=== PATIENT | female | born 1965 | race Caucasian/White ===

== ENCOUNTER 2024-11-01 12:52 | Emergency (ER) | payer OTHER, SELFPAY ==
--- NOTE | ~2024-11-01 | XR_ITS ---
EXAMINATION: XR RIBS, RIGHT CLINICAL INFORMATION: fall, right posterior rib pain COMPARISON: None available. TECHNIQUE: 3 views of the right ribs were obtained. FINDINGS: No consolidation, pleural effusion or pneumothorax. Cardiomediastinal silhouette size is normal. Calcified plaque aortic arch. Multilevel thoracic spondylosis. No acute depressed cortical disruption in the ribs of the right hemithorax. Skin marker overlapping the posterior lateral 11th rib. XR/XR ribs RT min 3V w CXR1V IMPRESSION: No acute rib fracture, right hemithorax. No acute airspace disease. Electronically signed by: Lucio Waddell MD 11/01/2024 02:18 PM EST RP
--- NOTE | 2024-11-01 13:40 | ED.GENADULT ---
HPI - General Adult General Chief complaint: Fall Stated complaint: pain on r side back pain Time Seen by Provider: 11/01/24 14:26 Source: patient, family and old records reviewed Mode of arrival: ambulatory Limitations: no limitations History of Present Illness ED Provider: ALENA ESTES narrative: 59 yo female PMH of GERD, HTN, HLD not on blood thinners fell last Monday 10/23 landing on R ribs and low back - no headstrike or LOC. Since then she has isolated pain to R lateral ribs and lower back. No other injuries reported, hurts to move and breathe. She did not report loss of control of bowel or bladder. MD complaint: rib pain Onset (ago): day(s) (10) Location: chest Radiation: back Severity: moderate Quality: aching Pain Consistency: intermittent Relieving factors: rest Exacerbating factors: movement Associated symptoms: denies other symptoms Treatments prior to arrival: none Related Data Previous Rx's ?Medication ?Instructions ?Recorded cyclobenzaprine 10 mg tablet 10 mg PO TID PRN muscle spasm #20 11/01/24 tabs lidocaine 5 % topical patch 1 patch topical DAILY #30 ea 11/01/24 Allergies Allergy/AdvReac Type Severity Reaction Status Date / Time No Known Allergies Allergy Verified 11/01/24 13:43 Review of Systems Review of Systems: Constitutional : No Weight loss, No Fever, No Chills ENT/Mouth : No sore throat, No Rhinorrhea Eyes: No Eye Pain, No Swelling Cardiovascular : pos rib pain Pain, no SOB, no Dyspnea on Exertion, No Orthopnea, No Edema, No Palpitations Respiratory : No Cough, No Sputum Gastrointestinal : no Nausea, No Vomiting, No Diarrhea, No abdominal Pain, No Hematochezia, No Melena Genitourinary : No Dysuria, No Urinary Frequency Musculoskeletal : No joint pain, No Myalgias, No Joint Swelling, pos back pain Skin : No Skin Lesions, No rash Neuro : No Weakness, No Numbness, No Dizziness, No Headache All other systems reviewed and are negative [facility] Past Medical History Attestation statement: The following information was validated with the patient. Source: old records reviewed Medical History (Updated 11/01/24 @ 14:41 by Jeanette Merlos DO) Hyperlipidemia GERD (gastroesophageal reflux disease) HTN (hypertension) Social History Social History (Updated 11/01/24 @ 14:41 by Jeanette Merlos DO) Patient Tobacco Use Status: Never used Tobacco Physical Exam ED Vital Signs: Vital Signs - 24 hr 11/01/24 13:41 Temperature 98.5 F Pulse Rate 85 Respiratory Rate 18 Blood Pressure 159/87 H Pulse Oximetry 96 Oxygen Delivery Method Room Air BMI result Body Mass Index 36.0 Appearance: Alert. Oriented X3. No acute distress. Eyes: Pupils equal, round and reactive to light. ENT: Pharynx normal. Neck: Normal inspection. Neck supple. CVS: Normal heart rate and rhythm. Pulses normal. Ribs: R lateral and R paraspinal lumbar Respiratory: No respiratory distress. Breath sounds normal. Abdomen: Soft and nontender. Skin: Skin warm and dry. Normal skin color. Normal skin turgor. Extremities: No lower extremity edema. No calf ttp Neuro: Oriented X 3. No motor deficit. No sensory deficit. CN2-12 intact Course Course Course Narrative: This is a Rapid Medical Examination (RME) performed by Osmar Mcnulty PA-C in triage. Full HPI, ROS, assessment and treatment plan per primary provider in the Main ED. 59 yo female here for eval of right posterior rib pain s/p mechanical slip and fall 1 wk ago. using lido patch w/o relief. no head strke or loc. not on ac. +ttp over right lower posteriolateral ribs. no palpable deformity. lungs clear Plan: imaging Medical Decision Making Medical Decision Making [facility] Narrative: 59 yo female PMH of GERD, HTN, HLD not on blood thinners here s/p fall without headstrike or LOC 10 days ago still has R sided rib pain and lower lumbar muscle pain at this time will need xrays of Ribs, back pain is all soft tissue. She has no other injuries and no resp distress or hypoxia. It all originated with the fall doubt she has VTE/ACS. No cauda equina symptoms noted - will obtain xray and DC with supportive care pending finding. Differential Diagnosis Differential Diagnoses: The differential diagnosis associated with the presentation includes rib contusion, fracture, lumbar strain Independent Interpretation I performed an independent interpretation of an: Plain X-Ray (no fx) Radiology Impression Discussion of test interpretation with radiology: I have reviewed the radiologist's reading. Independent Historian Clinical information obtained from an independent historian. History obtained from or confirmed by: Friend External Record Review External record reviewed: Outpatient record Prescription Management I considered prescription management with: Pain Medication and Other Discharge Plan Discharge Clinical Impression: Contusion of rib on right side Qualifiers: Encounter type: initial encounter Qualified Code(s): S20.211A - Contusion of right front wall of thorax, initial encounter Patient Disposition: Home, Self-Care Instructions: Rib Contusion (ED) Additional Instructions: limit lifting 10lbs for 2 weeks return for worsening pain, fevers, unable to breathe, mucous production that is severe or any other concerns INDINGS: No consolidation, pleural effusion or pneumothorax. Cardiomediastinal silhouette size is normal. Calcified plaque aortic arch. Multilevel thoracic spondylosis. No acute depressed cortical disruption in the ribs of the right hemithorax. Skin marker overlapping the posterior lateral 11th rib. XR/XR ribs RT min 3V w CXR1V IMPRESSION: No acute rib fracture, right hemithorax. No acute airspace disease. Prescriptions: New cyclobenzaprine 10 mg tablet 10 mg PO TID PRN (Reason: muscle spasm) Qty: 20 0RF lidocaine 5 % adhesive patch,medicated 1 patch topical DAILY Qty: 30 0RF Rx Instructions: leave on most painful area for up to 12 hrs Stand Alone Forms: Work/School Release Print Language: Tongan
[2024-11-01 13:41] VITALS: BP 159/87; PULSE 85; RESP 18; TEMP 36.9; O2SAT 96; BMI 36.0
--- NOTE | 2024-11-01 14:49 | PC.NURSE ---
pt was seen and discharged by provider
[2024-11-01 15:15] VITALS: BP 159/87; PULSE 85; RESP 18; TEMP 36.9; O2SAT 96
--- OUTSIDE RECORDS SUMMARY | 2024-11-01 17:08 | XMS_ITS | Clinical Summary ---
Author Organization [facility] Address [address] [place] [address] Care Team Providers Care Derrick Helper Name Role Phone Luis Armando Bradley QUINTON Primary Care Provider [phone] Source Comments PLEASE NOTE, if this patient is a minor, it may be UNLAWFUL to discuss sensitive information that is contained in these records (such as FAMILY PLANNING, MENTAL HEALTH or SUBSTANCE ABUSE) with the minor patient's parent or other person without the patient's specific authorization.[facility] Allergies Active Allergy Reactions Criticality Noted Date Comments Aspirin Intolerance - Will N ot Trigger Allergy Alert 01/20/2019 Medications amLODIPine-valsa rtan-hcthiazid 5-160-25 mg tab Take 1 Tablet by mouth once daily 90 Tablet 2 4 Active atorvastatin (LIPITOR) 40 mg tablet Take 1 Tablet by mouth once daily 90 Tablet 2 4 Active omeprazole (PRILOSEC) [address] capsuleIndicatio ns:Gastroesophag eal reflux disease without esophagitis Take 1 Capsule by mouth every morning before breakfast 90 Capsule 2 4 Active traZODone (DESYREL) 50 mg tablet TAKE 1 TABLET BY MOUTH AT BEDTIME NEEDED FOR SLEEP 30 Tablet 1 4 Active cholecalciferol, vitamin D3, (VITAMIN D3) 25 mcg (1,000 unit) capsuleIndicatio ns:Vitamin D deficiency TAKE 1 CAPSULE BY MOUTH ONCE DAILY 90 Capsule 4 Active Active Problems Problem Noted Date Diagnosed Date 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 pylori) infection 02/11/2019 01/27/2024 Overview (02/11/2019): Tested positive 02/10/2019 Chronic midline low back jose n without sciatica 01/21/2019 01/27/2024 Gastritis without bleeding 01/21/2019 0 01/27/2024 Immunizations Name Administration Dates Next Due Flu, Preservative Free 06/19/2023 TDAP 06/19/2023 ZOSTER VACCINE, RECOMBINANT (SHINGRIX) 4,06/19/2023 Family History Medical History Relation Name Comments No Known Problems Brother Chronic infections Father Diabetes Father High Cholesterol Mother Hypertension Mother Lumbar disc disease Mother No Known Problems Sister Relation Name Status Comments Brother Father Mother Alive Sister Social History Tobacco Use Types Packs/Day Years Used Date Smoking Tobacco: Never Smokeless Tobacco: Never Tobacco Cessation:Counseling Given: Not Answered Alcohol Use Standard Drinks/Week Comments Yes 0 (1 standard drink = 0.6 oz pur e alcohol) socially Social Connections Answer Date Recorded Connectedness 0 05/29/2024 Financial Resource Strain Answer Date R ecorded Financial Resource Strain 0 2018 Stress Answer Date Recorded Stress 0 04/30/2019 Physical Activity Answer Date Recorded Physical Activity 0 04/30/2019 Food Insecurity Answer Date Recorded Food 0 06/03/2024 Transportation Needs Answer Date Record ed Transportation 0 04/30/2019 Housing Stability Answer Date Recorded Housing 0 04/30/2019 Safety and Environment Answer Date Eric rded Safety 0 04/30/2019 Utilities Answer Date Recorded Utilities 0 04/30/2019 Employment Answer Date Recorded Stress 0 05/29/2024 Comments No Sex and Gender Information Value Date Recorded Sex Assigned at Female 01/20/2019 10:32 AM PDT Legal Sex Female 11:48 AM PDT Gender Identity Female 01/20/2019 10:32 AM PDT Sexual Orientation Straight 01/21/2019 2: 29 PM PDT Last Filed Vital Signs Vital Sign Reading Time Taken Comments Blood Pressure 120/80 01/27/2024 2:28 PM EDT Pulse 74 01/27/2024 2:28 PM EDT Temperature 36.7 ??C (98 ??F) 01/27/2024 2:28 PM EDT Respiratory Rate 18 01/27/2024 2:28 PM EDT Oxygen Saturation 97% 06/19/2023 10:34 AM EDT Inhaled Oxygen Concentration - - Weight 94.3 kg (208 lb) 01/27/2024 2:28 PM EDT Height 162.6 cm (5' 4 ) 01/27/2024 2:28 PM EDT Body Mass Index 35.7 01/27/2024 2:28 PM EDT Plan of Treatment Health Maintenance Due Date Last Done Comments Dental FMX/Pano 1966 Dental Perio Charting 1966 HPV Screening 1966 Pap + HPV 1966 CT Colonography 2011 FIT/gFOBT 2011 Fecal DNA 2011 Flexible Sigmoidoscopy 2011 [id number] ( season) 2024 Imm-Influenza (#1) 2024 06/19/2023 Annual Preventive Care Visit 06/19/2024 06/19/2023, 01/20/2019 Lipid Screening 06/23/2024 06/23/2023, 01/20/2019 Breast Cancer Screening (Mammogram) 06/28/2024 06/28/2023, 02/16/2019, 02/16/2019 (Managed by Outside Provider) Alcohol and Drug Screen 09/08/2024 01/27/20 24, 09/23/2023, 06/19/2023, Additional history exists Depression Annual Screen 09/08/2024 01/27/2024 Dental BW 11/08/2024 11/07/2023 Dental Examination 11/08/2024 11/07/2023 Dental Prophy 11/08/2024 11/07/2023 Tobacco Screening 02/02/2025 02/03/2024 Diabetes Screening 06/23/2026 06/23/2023, 1 , 01/20/2019, Additional history exists Colonoscopy 03/22/2029 03/22/2019 Colorectal Cancer Screening 03/22/2029 Imm-DTaP/Tdap/Td (2 - Td or Tdap) 06/19/2033 023 HIV Screening Completed 06/23/2023, 01/20/2019 Hepatitis C Screening Completed 06/23/2023 Imm-Zoster, Recombinant Completed 01/27/2024, 06/19 Cervical Ablation/Cold-Knife Conization Discontinued Cervical Cancer Screening Discontinued Cervical Cryotherapy Discontinued Colposcopy Discontinued Endometrial Biopsy Discontinued Excision/Leep Discontinued HPV Genotyping Discontinued Imm-Hepatitis B Discontinued Pap Smear Discontinued Vaginal Pap Discontinued Vulvoscopy Discontinued Procedures Procedure Name Priority Date/Time Associated Diagnosis Comments BITEWINGS - FOUR RADIOGRAPHIC IMAGES Routine 11/07/2023 4:20 PM EST Defective dental evangelical Full PROPHYLAXIS - ADULT Routine 11/07/2023 4:20 PM EST Defective dental evangelical Full PERIODIC ORAL EVALUATION ESTABLISHED PATIENT Routine 11/07/2023 4:20 PM EST Defective dental evangelical REFERRAL FOR MAMMOGRAM Routine 3:00 AM EDT Examination, medical, general HIV 1/2 AG & AB W/RFLX (4TH GEN) Routine 06/23/2023 10:29 AM EDT Examination, medical, general HEPATITIS C AB W/RFLX HCV RNA, QT, RT PCR Routine 06/23/2023 10:29 AM EDT Examination, medical, general COMPREHENSIVE METABOLIC PANEL Routine 06/23/2023 10:29 AM EDT Examination, medical, general LIPID PANEL Routine 06/23/2023 10:29 AM EDT Examination, medical, general HISTORIC COLONOSCOPY 03/22/2019 3:00 AM EDT from Last 3 Months or Most Recently Relevant to Health Maintenance Results * REFERRAL FOR MAMMOGRAM (06/28/2023 3:00 AM EDT) 06/28/2023 3:00 AM EDT Luis Armando Bradley UTILITY MANAGER IMG RFL MAMMO Edited Re sult - Final * HEPATITIS C AB W/RFLX HCV RNA, QT, RT PCR (06/23/2023 10:29 AM EDT) HEPATITIS C ANTIBODY NON-REACT [place] NON-REACT [place] [facility] Comment: HCV antibody was non-reactive. There is no laboratory evidence of HCV infection. In most cases, no further action is required. However, if recent HCV exposure is suspected, a test for HCV RNA (test code 51960) is suggested. For additional information please refer to http://Startupxplore.Odotech/faq/GYF81b4 (This link is being provided for informational/ educational purposes only.) Blood Blood / Unknown 06/23/2023 1 0:29 AM EDT 06/23/2023 10:30 AM EDT Narrative [facility] - 06/26/2023 12:56 PM EDT FASTING:YES Luis Armando Bradley [facility] - BLOOD DRAW Edited R esult - Final [facility] [address] [address], [facility] [address] [address] * HIV 1/2 AG & AB W/RFLX (4TH GEN) (06/23/2023 10:29 AM EDT) Pathologist [facility] HIV AG/AB, 4TH GEN NON-REAC TIVE NON-REAC TIVE [facility] Comment: HIV-1 antigen and HIV-1/HIV-2 antibodies were not detected. There is no laboratory evidence of HIV infection. PLEASE NOTE: This information has been disclosed to you from records whose confidentiality may be protected by state law. ??If your state requires such protection, then the state law prohibits you from making any further disclosure of the information without the specific written consent of the person to whom it pertains, or as otherwise permitted by law. A general authorization for the release of medical or other information is NOT sufficient for this purpose. ?? For additional information please refer to http://education.Odotech/faq/GDQ894 (This link is being provided for informational/ educational purposes only.) The performance of this assay has not been clinically validated in patients less than 2 years old. Blood Blood / Unknown 06/23/2023 1 0:29 AM EDT 06/23/2023 10:30 AM EDT Narrative [facility] - 06/26/2023 12:56 PM EDT FASTING:YES Luis Armando Bradley UTILITY MANAGER LAB - BLOOD DRAW Final Re sult [facility] [address] [address], [facility] [address] [address] * (ABNORMAL) LIPID PANEL (06/23/2023 10:29 AM EDT) CHOLESTEROL, TOTAL 339(H) <200 mg/dL [facility] HDL CHOLESTEROL 58 > OR = 50 mg/dL [facility] TRIGLYCERIDES 131 <150 mg/dL [facility] LDL-CHOLESTEROL 253(H) 99 mg/dL (calc) [facility] Comment: LDL-C levels > or = 190 mg/dL may indicate familial hypercholesterolemia (FH). Clinical assessment and measurement of blood lipid levels should be considered for all first degree relatives of patients with an FH diagnosis. LDL Cholesterol (LDL-C) levels > or = 300 mg/dL may indicate homozygous familial hypercholesterolemia (HoFH). Untreated, these extremely high LDL-C levels can result in premature CV events and mortality. Patients should be identified early and provided appropriate interventions to reduce the cumulative LDL-C burden from . For questions about testing for familial hypercholesterolemia, please call [employer] at [phone].INFO. Judith T, et al. J National Lipid Association Recommendations for Patient-Centered Management of Dyslipidemia: Part 1 Journal of Clinical Lipidology 2015;9(2), 129-169. Jason Rock et al. (2014). Homozygous familial hypercholesterolaemia: new insights and guidance for clinicians to improve detection and clinical management. Heart Journal, 35(32), 1158-1542. Reference range: <100 Desirable range <100 mg/dL for primary prevention; ?? <70 mg/dL for patients with CHD or diabetic patients with > or = 2 CHD risk factors. LDL-C is now calculated using the Jeovany calculation, which is a validated novel method providing better accuracy than the Friedewald equation in the estimation of LDL-C. Hammad PIERRE et al. NOHEMI. 2013;310(19): 5864-9975 (http://education.Xanodyne.KoolLearning/faq/KTG699) CHOL/HDLC RATIO 5.8(H) <5.0 (calc) [facility] NON-HDL CHOLESTEROL 281(H) <130 mg/dL (calc) [facility] Comment: Non-HDL level > or = 220 is very high and may indicate genetic familial hypercholesterolemia (FH). Clinical assessment and measurement of blood lipid levels should be considered for all first-degree relatives of patients with an FH diagnosis. For patients with diabetes plus 1 major ASCVD risk factor, treating to a non-HDL-C goal of <100 mg/dL (LDL-C of <70 mg/dL) is considered a therapeutic option. Blood Blood / Unknown 06/23/2023 1 0:29 AM EDT 06/23/2023 10:30 AM EDT Narrative [facility] - 06/26/2023 12:56 PM EDT FASTING:YES Luis Armando Bradley UTILITY MANAGER LAB - BLOOD DRAW Final Re sult [facility] [address] [place] [id number], [facility] [address] [place] [phone] * COMPREHENSIVE METABOLIC PANEL (06/23/2023 10:29 AM EDT) GLUCOSE 95 65 - 99 mg/dL [facility] Comment: ?Fasting reference interval UREA NITROGEN (BUN) 8 7 - 25 mg/dL [facility] CREATININE (blood) 0.69 0.50 - 1.03 mg/dL [facility] EGFR 101 > OR = 60 mL/min/1. 73m2 [facility] BUN/CREATININE RATIO SEE NOTE: [facility] Comment: ?? Not Reported: BUN and Creatinine are within ?? reference range. ? SODIUM 139 135 - 146 mmol/L [facility] POTASSIUM 4.1 3.5 - 5.3 mmol/L [facility] CHLORIDE 101 98 - 110 mmol/L [facility] CARBON DIOXIDE 26 20 - 32 mmol/L [facility] CALCIUM 9.2 8.6 - 10.4 mg/dL [facility] PROTEIN, TOTAL 7.0 6.1 - 8.1 g/dL [facility] ALBUMIN 4.3 3.6 - 5.1 g/dL [facility] GLOBULIN 2.7 1.9 - 3.7 g/dL (calc) [facility] ALBUMIN/GLOBULI N RATIO 1.6 1.0 - 2.5 (calc) [facility] BILIRUBIN, TOTAL 0.5 0.2 - 1.2 mg/dL [facility] ALKALINE PHOSPHATASE 110 37 - 153 U/L [facility] AST 20 10 - 35 U/L [facility] ALT 18 6 - 29 U/L [facility] Blood Blood / Unknown 06/23/2023 1 0:29 AM EDT 06/23/2023 10:30 AM EDT Narrative [facility] - 06/26/2023 12:56 PM EDT FASTING:YES Luis Armando Bradley UTILITY MANAGER LAB - BLOOD DRAW Edited R esult - Final [facility] [address] [address], [facility] [address] [id number] * HISTORIC COLONOSCOPY (03/22/2019 3:00 AM EDT) 03/22/2019 3:00 AM EDT Luis Armando Bradley UTILITY MANAGER PROCEDURES Final Res ult from Last 3 Months or Most Recently Relevant to Health Maintenance Insurance [place] [address] [employer] Care Teams Derrick Helper Relationship Specialty Start Date End Date Luis Armando Bradley FNP [address] [place] [address] PCP - General Family Medicine, FINISH SANDER 05/15/23
== END 2024-11-01 15:16 | disposition home or self-care (01) ==
PROVIDERS: Emergency Provider Emergency Medicine
DX: S20.211A Contusion of right front wall of thorax, initial encounter (principal); R07.81 Pleurodynia; M54.50 Low back pain, unspecified; X58.XXXA Exposure to other specified factors, initial encounter; Y93.9 Activity, unspecified; Y92.9 Unspecified place or not applicable; Y99.8 Other external cause status
CPT/HCPCS: 71101; 99282; 99283

== ENCOUNTER → 2024-11-01 13:42 | Outpatient (BNV) | payer OTHER, SELFPAY | PROVIDERS: Emergency Provider Emergency Medicine; Visit Provider Radiology Diagnostic Radiology | DX: R07.82 Intercostal pain (principal) | CPT/HCPCS: 71101 ==

== ENCOUNTER 2025-02-03 13:22 | Emergency (ER) | payer MEDICAID, SELFPAY ==
--- NOTE | ~2025-02-03 | XR_ITS ---
CLINICAL HISTORY: fall, pain 4 view, chest and right ribs Comparison: CR/UT/SR - XR RIBS RT MIN 3V W CXR1V - 11/01/24 14:11 EST Findings: No fractures or dislocations. Right basilar atelectatic changes. IMPRESSION: 1. No acute fractures. This document has been electronically signed by: Florian Jones MD on 02/03/2025 19:05:12
--- NOTE | 2025-02-03 13:41 | ED_ITS ---
HPI - General Adult General Chief complaint: General Medical Stated complaint: breast pain Time Seen by Provider: 02/03/25 18:03 Source: patient Mode of arrival: ambulatory Limitations: no limitations History of Present Illness ED Provider: penny diaz np HPI narrative: Patient is a 59 year old female who presents emergency department for evaluation. She reports that 3 months ago she had a fall in the snow she caught herself on her hands but since has been experiencing intermittent pain to the right breast, localizes the pain primarily to the lateral aspect and even the right upper quadrant of her abdomen. She feels at times the breast is swollen in comparison to the left, she denies any irregular skin changes rashes lesions or discharge from the nipples. Denies any fevers or chills. She states that she was seen here after the initial fall, has been unable to follow up with your primary care doctor due to insurance complications. When asked, she states that she does additionally experienced intermittent nausea, pain is worse upon palpation and with movement of the arm, at times it is felt into her right shoulder as well. Related Data Previous Rx's ?Medication ?Instructions ?Recorded cyclobenzaprine 10 mg tablet 10 mg PO TID PRN muscle spasm #20 11/01/24 tabs lidocaine 5 % topical patch 1 patch topical DAILY #30 ea 11/01/24 Allergies Allergy/AdvReac Type Severity Reaction Status Date / Time No Known Allergies Allergy Verified 02/03/25 13:45 Review of Systems 2 Review of Systems: Yes all other systems are reviewed and are negative PMFSH Past Medical History Attestation statement: The following information was validated with the patient. Source: old records reviewed Medical History Hyperlipidemia GERD (gastroesophageal reflux disease) HTN (hypertension) Social History Social History (Updated 11/01/24 @ 14:41 by Jeanette Merlos DO) Unable to assess alcohol history related to: Unknown Patient Tobacco Use Status: Never used Tobacco Use of substances other than those prescribed or required for medical reasons: Unknown Advance Directives: No Advance Directives Information Provided: No Physical Exam ED Vital Signs: Vital Signs - 24 hr 02/03/25 13:42 02/03/25 20:00 Temperature 98.3 F 98.3 F Pulse Rate 87 89 Respiratory Rate 16 16 Blood Pressure 147/90 H 145/80 H Pulse Oximetry 96 95 Oxygen Delivery Method Room Air Room Air BMI result Body Mass Index 37.3 Appearance: Alert.?Oriented to person, place and time. No acute distress.?Normal affect. Neck: Normal inspection.? Neck supple.?? CVS: Heart sounds normal. Normal heart rate and rhythm.? Pulses normal.?? 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 No axillary adenopath. Reported diffuse tenderness along the lateral aspect/right lateral chest wall Respiratory: No respiratory distress.? Lung sounds clear to auscultation bilaterally?? Abdomen: Soft and non-tender. Normoactive bowel sounds. ? Skin: Skin warm and dry.? Normal skin color.? Extremities: No extremity edema.? Neuro: Moves all extremities spontaneously. Sensation intact bilaterally. Ambulates with normal steady gait. Course Course Course Narrative: This is an RME: Additional HPI, ROS, PE not included below will be deferred to primary provider. RME assessment and note performed by: Samuel Otero PA-C 59 yo female with PMhx of presents to ED due to R breast pain. Patient states she fell several months ago in the snow when she caught herself on outstretched hands and then noticed pain in her breast. She states she tried to go to her PCP for follow-up but due to insurance changes she was unable to make her appointment. She states she presents to the ED today due to increased pain and swelling of the right breast. Denies drainage of the nipple and overlying skin changes. PE: Physical exam deferred due to lack of privacy in triage. In no acute distress, nontoxic appearing Plan: Labs Reevaluation(s) Reevaluation #1: XR imaging without acute pathology. Serum labs overall unremarkable. Review these findings with the patient, advised outpatient follow-up with PCP and discussed worrisome signs and symptoms that would warrant re-evaluation in the emergency department. All questions answered Medical Decision Making Medical Decision Making MDM Narrative: Patient is a 51-year-old female with past medical history of hyperlipidemia, hypertension, GERD who presents emergency department for evaluation of reported right breast pain and subjective swelling over the past 3 months with onset after a mechanical fall. She was seen in the emergency department after that fall on 11/01/2024, had an XR obtained which showed no acute rib fracture. Unfortunately due to insurance complication she has not been able to follow up with her primary care provider. She additional reports that the pain occasionally might traveling to the right shoulder or the right upper portion of her abdomen but particularly pointing to the lower costal margin, and occasionally has associated nausea. Her abdominal examination at this time is benign. However given the intermittent nature this over the past 3 months discussed the will obtain serum labs to exclude acute hepatobiliary etiology, repeat XR of the chest/ribs to evaluate for possible fracture. We did discuss the importance of following with the primary care doctor she continues to have reported particular breast pain, she may need to have a mammogram performed to exclude potential malignancy, she reports that she last had 1 just over a year ago without any acute abnormality. Differential Diagnosis Differential Diagnoses: The differential diagnosis associated with the presentation includes (See narrative above) Admission/Observation Consideration of admission/observation: Escalation of care including admission/observation considered Lab Data MDM Lab Attestation statement: I reviewed the patient's lab results. CBC is without leukocytosis anemia or thrombocytopenia. No electrolyte derangement. No CHRISTINE. LFTs and lipase overall unremarkable. 02/03/25 19:54 02/03/25 19:54 Labs: Lab Results 02/03/25 Range/Units 19:54 WBC 7.4 (4.8-10.8) X10*3/uL RBC 4.83 (4.20-5.50) X10*6/uL Hgb 13.9 (12.0-16.0) g/dl Hct 41.3 (37.0-47.0) % MCV 85.5 (80.0-98.0) fL MCH 28.8 (27.0-33.0) pg MCHC 33.7 (31.0-35.0) g/dl RDW 13.3 (11.0-16.0) % Plt Count 266 (160-400) X10*3/uL MPV 9.9 (9.4-12.3) fL Immature Gran % (Auto) 0.3 (0.0-0.4) % Neut % (Auto) 54.0 (45-73) % Lymph % (Auto) 37.0 (20-40) % Childress % (Auto) 6.6 (2-11) % Eos % (Auto) 1.2 (0-4) % Baso % (Auto) 0.9 (0-2) % Lymph # (Auto) 2.7 (1.2-4.9) X10*3/uL Childress # (Auto) 0.5 (0.1-1.2) X10*3/uL Eos # (Auto) 0.1 (0.0-0.4) X10*3/uL Baso # (Auto) 0.1 (0.0-0.2) X10*3/uL Abs Immat Gran (auto) 0.02 (0.00-0.03) X10*3/uL Absolute Neuts (auto) 4.0 (2.0-8.3) x10*3/uL Absolute Nucleated RBC 0.000 (0.0-0.012) X10*3/uL Nucleated RBC % (auto) 0.0 (0.0-0.2) /100WBC Sodium 141 (135-145) mmol/L Potassium 3.4 (3.3-5.1) mmol/L Chloride 105 (96-108) mmol/L Carbon Dioxide 27 (22-29) mmol/L Anion Gap 12 (12-20) BUN 14 (9-16) mg/dL Creatinine 0.69 (0.5-1.4) mg/dL Estim Creat Clear Calc 101.3 Estimated GFR > 60 Random Glucose 94 (60-115) mg/dL Calcium 9.7 (8.4-10.2) mg/dL Total Bilirubin 0.4 (0.0-1.0) mg/dL AST 30 (5-31) U/L ALT 31 (0-31) U/L Alkaline Phosphatase 130 H (39-117) U/L Total Protein 7.8 (6.5-8.0) g/dL Albumin 4.4 (3.5-5.0) g/dL Lipase 26 (8-78) U/L Independent Interpretation I performed an independent interpretation of an: Plain X-Ray (no acute fracture of the ribs, no consolidation or infiltrate or evidence of pneumothorax) Radiology Impression Discussion of test interpretation with radiology: I have reviewed the radiologist's reading. Radiologist Impression: 4 view, chest and right ribs Comparison: CR/OR/SR - XR RIBS RT MIN 3V W CXR1V - 11/01/24 14:11 EST Findings: No fractures or dislocations. Right basilar atelectatic changes. IMPRESSION: 1. No acute fractures. External Record Review External record reviewed: Outpatient record Chronic Conditions Patient?s care impacted by: Other (See narrative above) Discharge Plan Discharge Clinical Impression: Breast pain, right Patient Disposition: Home, Self-Care Additional Instructions: blood work today was very reassuring. X-ray did not show any evidence of fracture to ribs or abnormality in the lungs. As discussed, you have been experiencing this pain to your breast and concern for swelling over the past 3 months it is recommended that you follow-up with your primary care doctor, they may consider additional testing such as a mammogram for further evaluation. You can take ibuprofen 200 mg, 3 tablets (600mg) every 6-8 hours as needed for pain, in addition to Tylenol 500 mg, 2 tablets (1,000mg) every 4-6 hours as needed for pain, but not to exceed 3 doses daily (3,000mg).? You may return back to emergency department any new or worsening symptoms or concerns Prescriptions: No Action cyclobenzaprine 10 mg tablet 10 mg PO TID PRN (Reason: muscle spasm) Qty: 20 0RF lidocaine 5 % adhesive patch,medicated 1 patch topical DAILY Qty: 30 0RF Rx Instructions: leave on most painful area for up to 12 hrs Referrals: Physician,Unknown J [Primary Care Provider] - Print Language: Zimbabwean
[2025-02-03 13:42] VITALS: BP 147/90; PULSE 87; RESP 16; TEMP 36.8; O2SAT 96; BMI 37.3
[2025-02-03 19:57] LABS: MANUAL DIFF FLAG NO
[2025-02-03 20:00] VITALS: BP 145/80; PULSE 89; RESP 16; TEMP 36.8; O2SAT 95
[2025-02-03 20:00] LABS: Basophils Absolute Auto 0.1 X10*3/uL (0.0-0.2); Basophils Percent Auto 0.9 % (0-2); Eosinophils Absolute Auto 0.1 X10*3/uL (0.0-0.4); Eosinophils Percent Auto 1.2 % (0-4); Hematocrit 41.3 % (37.0-47.0); Hemoglobin 13.9 g/dl (12.0-16.0); Imm Gran Abs Auto 0.02 X10*3/uL (0.00-0.03); Imm Gran Pct Auto 0.3 % (0.0-0.4); Lymphocytes Absolute Auto 2.7 X10*3/uL (1.2-4.9); Mean Corpuscular HGB Conc 33.7 g/dl (31.0-35.0); Mean Corpuscular Hemoglobin 28.8 pg (27.0-33.0); Mean Corpuscular Volume 85.5 fL (80.0-98.0); Mean Platelet Volume 9.9 fL (9.4-12.3); Monocytes Absolute Auto 0.5 X10*3/uL (0.1-1.2); Monocytes Percent Auto 6.6 % (2-11); Platelet Count 266 X10*3/uL (160-400); Red Blood Count 4.83 X10*6/uL (4.20-5.50); Red Cell Distribution Width 13.3 % (11.0-16.0); White Blood Count 7.4 X10*3/uL (4.8-10.8)
[2025-02-03 20:10] LABS: Lipase 26 U/L (8-78)
[2025-02-03 20:14] LABS: Alanine Aminotransferase 31 U/L (0-31); Albumin Level 4.4 g/dL (3.5-5.0); Alkaline Phosphatase 130 U/L (39-117); Anion Gap 12 (12-20); Aspartate Amino Transferase 30 U/L (5-31); Bilirubin Total 0.4 mg/dL (0.0-1.0); Blood Urea Nitrogen 14 mg/dL (9-16); Calcium 9.7 mg/dL (8.4-10.2); Carbon Dioxide 27 mmol/L (22-29); Chloride 105 mmol/L (96-108); Creatinine Clr Calc Pharmacy 101.3; Estimated Glomerular Filt Rate > 60; Glucose Random 94 mg/dL (60-115); Potassium 3.4 mmol/L (3.3-5.1); Sodium 141 mmol/L (135-145); Total Protein 7.8 g/dL (6.5-8.0)
[2025-02-03 20:53] VITALS: BP 145/80; PULSE 89; RESP 16; TEMP 36.8; O2SAT 95
== END 2025-02-03 20:54 | disposition home or self-care (01) ==
PROVIDERS: Nurse Practitioner Family; Emergency Provider Emergency Medicine
DX: N64.4 Mastodynia (principal); R07.81 Pleurodynia
CPT/HCPCS: 36415; 71101; 80053; 83690; 85025; 99283; 99284

== ENCOUNTER → 2025-02-03 18:10 | Outpatient (BNV) | payer MEDICAID, SELFPAY | PROVIDERS: Emergency Provider Emergency Medicine; Visit Provider Student in an Organized Health Care Education/Training Program | DX: R07.81 Pleurodynia (principal); W19.XXXA Unspecified fall, initial encounter | CPT/HCPCS: 71101 ==

== ENCOUNTER 2025-07-07 13:41 | Outpatient (REF) | payer MEDICAID, SELFPAY ==
--- NOTE | ~2025-07-07 | US_ITS ---
EXAMINATION: MM DIAGNOSTIC DIGITAL BREAST TOMOSYNTHESIS, BILATERAL Right limited ultrasound. CLINICAL INFORMATION: Right breast pain COMPARISON: Mammography: Comparison is made with relevant prior exams. TECHNIQUE: Digital breast mammography with tomosynthesis is performed in both the craniocaudal and mediolateral oblique views along with computer-aided detection (CAD). FINDINGS: The breasts are heterogeneously dense, which may obscure small masses. Left: There are no significant masses, abnormal calcifications, or other abnormalities. Right: Asymmetry questioned distortion central slightly upper breast localizing medially on MLO view 48/70. No suspicious calcifications or other abnormal findings. Targeted color Doppler ultrasound scanning in the lateral right breast and upper central upper inner right breast from 7-3 o'clock demonstrates an oval hypoechoic solid mass versus patch of normal fibroglandular breast tissue at 1:00 3 4 cm from the nipple measuring 10 x 6 x 11 mm. This is a questionable correlate for the asymmetry on mammography. Otherwise scanning from 7-3 o'clock demonstrates normal fibroglandular breast tissue. Results are provided to the patient at time of visit by the technologist. US/US Breast RT Limited Mamm Only IMPRESSION: Left: Negative. Right: 1. Asymmetry retroareolar region slightly superior breast localizing medially on MLO view. Question sonographic correlate of oval hypoechoic solid mass versus patch of tissue at 1:00 3 to 4 cm from the nipple. Recommend ultrasound-guided core needle biopsy at this time for confirmation. The findings and recommendations were discussed with the patient the procedure will be scheduled. If the postprocedural clip does not correlate with the asymmetry management will be pending biopsy clip placement and pathology. ASSESSMENT: BI-RADS Category 4: Suspicious RECOMMENDATION: Biopsy recommended This patient's information was entered into a reminder system with a target due date for their next mammogram. Electronically signed by: Yissel Ramos DO 07/08/2025 03:49 PM EDT
--- OUTSIDE RECORDS SUMMARY | 2025-07-07 16:42 | XMS_ITS | Clinical Summary ---
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 30 tablet 06/20/20 25 Encounters Date Type Department Care Team Description 06/13/2025 Telephone [facility] [address] [place] [phone] Agustin Garcia MD telephone call 06/10/2025 Population Health Risk Score [facility] ([facility]) Department [address] [id number] Provider, Population Health Generic 05/21/2025 12:40 PM EDT Office Visit [facility] [address] [place] [phone] Rahul Zaldivar MD Breast pain, right (Primary Dx) 05/21/2025 Telephone [facility] [address] [place] [phone] Rahul Zaldivar MD 05/21/2025 Travel 05/05/2025 Telephone [facility] [address] [place] [phone] Allison Vences MD from Last 3 Months Social History Tobacco Use Types Packs/Day Years Used Date Smoking Tobacco: Never Assessed Comments Unknown Sex and Gender Information Value Date Recorded Sex Assigned at Female 05/21/2025 12:12 PM EDT Legal Sex Female 11:58 AM EDT Gender Identity Female 05/21/2025 12:12 PM EDT Sexual Orientation Straight 05/21/2025 12 :12 PM EDT Last Filed Vital Signs Vital Sign Reading Time Taken Comments Blood Pressure 155/99 05/21/2025 12:22 PM EDT Pulse 84 05/21/2025 12:22 PM EDT Temperature 36.7 C (98.1 F) 05/21/2025 12:22 PM EDT Respiratory Rate - - Oxygen Saturation 97% 05/21/2025 12:22 PM EDT Inhaled Oxygen Concentration - - Weight 97.5 kg (215 lb) 05/21/2025 12:22 PM EDT Height - - Body Mass Index - - Plan of Treatment Health Maintenance Due Date Last Done Comments CT Colonography 1966 Colonoscopy 1966 Colorectal Cancer Screening 1966 Depression Screening 1966 FIT DNA/Cologuard 1966 FIT 1966 FOBT 1966 Lipid Panel 1966 SDOH Screening 1966 Sigmoidoscopy 1966 Disability Screening 1966 Alcohol/Substance Use Screening 1978 Tobacco Screening 1978 Hepatitis C Screening 1984 Hepatitis B Vaccines (1 of 3 - 19+ 3-dose series) 1985 Pap Smear 1987 Cervical Cancer Screening 1996 HPV/Cotest 1996 Mammogram 2006 Pneumococcal Vaccine: 50+ Years (1 of 1 - PCV) 2016 COVID-19 Vaccine ( - 2023-2 5 season) 2025 Influenza Vaccine (#1) 2025 06/19/2023 DTaP/Tdap/Td Vaccines (2 - T d or Tdap) 06/19/2033 06/19/2023 RSV Patients and Patients Aged 60 years or older (1 - 1-dose 75+ series) 2041 HIV Screening Completed 06/23/2023 Zoster Vaccines Completed 01/27/2024, 06/19/2023 HIB Vaccines Aged Out No longer eligi ble based on patient's age to complete this topic HPV Vaccines Aged Out No longer eligi ble based on patient's age to complete this topic Hepatitis A Vaccines Aged Out No long er eligible based on patient's age to complete this topic IPV Vaccines Aged Out No longer eligi ble based on patient's age to complete this topic Meningococcal B Vaccine Aged Out No l onger eligible based on patient's age to complete this topic Meningococcal Vaccine Aged Out No eddy beryl eligible based on patient's age to complete this topic RSV under 20 months Aged Out No longe r eligible based on patient's age to complete this topic Rotavirus Vaccines Aged Out No longer eligible based on patient's age to complete this topic Insurance [address] [id number] [facility]
== END 2025-07-07 13:42 | disposition home or self-care (01) ==
LOC: HO.MAMMO 13:41
PROVIDERS: Visit Provider Family Medicine
DX: N64.4 Mastodynia (principal)
CPT/HCPCS: 76642; 77062; 77066

== ENCOUNTER → 2025-07-07 14:30 | Outpatient (BNV) | payer MEDICAID, SELFPAY | PROVIDERS: Visit Provider Internal Medicine | DX: N64.4 Mastodynia (principal) | CPT/HCPCS: 76642; 77062; 77066 ==

== ENCOUNTER 2025-07-11 10:00 | Outpatient (AMB) | payer MEDICAID, SELFPAY ==
--- NOTE | 2025-07-11 10:06 | MHC.OFFVIS ---
Vital Signs 07/11/25 10:07 Height 5 ft 4 in Weight 222 lb 6 oz BMI 38.2 BP 184/85 H Blood Pressure Location Rt brachial Position Sitting Pulse 121 H Intake Visit Reasons: US Bx RT breast 1:00 oclock denisty Intake Note: This patient presents for an assessment for Ultrasound guided biopsy for right breast density at 1:00 o'clock. Pt c/o; reports right breast pain, denies discharge from nipple, reports occasional swelling, reports occasional hot to the touch sensation and redness right breast. Bx booked: 07/19/25@ 8 am DI: 07/07/25: MM Diag 07/07/25: Breast US 02/03/25: Ribs X-ray Siding Applicator Required: Yes Siding Applicator Services: Siding Applicator Present Siding Applicator Name: Alejandro Information Interpreted: non-clinical & clinical Accompanied by: Self / Same As Patient Allergies aspirin Adverse Reaction (Severe, Verified 07/11/25 10:13) Abdominal Pain Medication List - Last Reconciled 07/11/25 by Yadiel Roldan MD atorvastatin (Lipitor) 40 mg PO DAILY cholecalciferol (vitamin D3) 25 mcg PO DAILY cyclobenzaprine 10 mg PO TID PRN lidocaine 5% 1 patch topical DAILY omeprazole 20 mg PO DAILY HPI HPI US Bx RT breast 1:00 oclock denisty: Details: [age] year old female referred for an abnormal mammogram. She had undergone a diagnostic mammogram and ultrasound because of complaints of right breast pain last week and this showed an oval hypoechoic solid mass versus patch of normal fibroglandular breast tissue at the 7 o'clock to 03:00 position of the right breast measuring 10 x 6 x 11 mm. An ultrasound-guided biopsy was therefore recommended She admits to having breast pain and tenderness on the right side for almost a year now. She says that even the mammogram was causing her tenderness then. She says that the pain and tenderness extends with the right axilla. She denies any palpable breast masses. She denies any nipple or skin changes. Her menarche was at age of 16. Her was the age of 18. She had 2 pregnancies. She had hysterectomy at age of 49. She says her maternal aunt had breast cancer in her 60s. [facility] Medical History (Updated 07/11/25 @ 10:34 by Yadiel Roldan MD) Morbid obesity Abnormal mammogram of right breast Hyperlipidemia GERD (gastroesophageal reflux disease) HTN (hypertension) Surgical History Hx of hysterectomy, total Family History Maternal Aunt Breast cancer Maternal Grandmother Stomach cancer Social History Patient Tobacco Use Status: Never used Tobacco Female Reproductive History Menstrual Age of Menarche: 16 Total pregnancies: 2 Full term: 1 Review of Systems Const Denies chills and Denies fever(s) Card Denies chest pain, Denies dyspnea and Denies dyspnea on exertion Resp Denies cough, Denies dyspnea and Denies dyspnea on exertion GI Denies hematochezia and Denies change in bowel habits Denies hematuria Musc Denies back pain and Denies limited range of motion Neuro Denies focal weakness and Denies convulsions Psych Denies depression and Denies mood swings Physical Exam Vital Signs: Last Vital Signs Pulse 121 H 07/11/25 10:07 BP 184/85 H 07/11/25 10:07 BMI result Body Mass Index 38.2 Const General: comfortable and no acute distress Nutritional Appearance: obese Orientation/consciousness: patient oriented x3 Neck Neck: Yes no lymphadenopathy Chest Other: No palpable breast mass, no axillary lymphadenopathy, no nipple or skin changes Resp Auscultation: clear to auscultation bilaterally Cardio Rhythm: regular rhythm GI Palpation (GI): Soft to palpation, nontender and no guarding Neuro General: patient oriented x3 Assessment & Plan Assessment & Plan (1) Abnormal mammogram of right breast: Code(s): R92.8 - Other abnormal and inconclusive findings on diagnostic imaging of breast Category: Medical Plan: Her main complaint was actually mastodynia in the right side so she had undergone a mammogram and ultrasound last week. This showed a hypoechoic solid mass versus a past of normal fibroglandular breast tissue in the right breast. An ultrasound-guided biopsy was recommended by the radiologist. I explained to her the technique of this procedure. I will see her again in the office next week to discuss the path report She otherwise does not seem to be at high risk for breast cancer. Orders: Orders US breast ndl core biopsy RT Today R92.8 - Other abnormal and inconclusive findings on diagnostic imaging of breast Coding Level of Care Code New Pt Level 3 (99766) Diagnoses Abnormal mammogram of right breast R92.8
[2025-07-11 10:07] VITALS: BP 184/85; PULSE 121; BMI 38.2
--- OUTSIDE RECORDS SUMMARY | 2025-07-11 11:55 | XMS_ITS | Clinical Summary ---
Author Organization [facility] Address [address] [place] [address] Care Team Providers Care Route Sales Specialist Name Role Phone Luis Armando Bradley QUINTON Primary Care Provider [phone] Source Comments PLEASE NOTE, if this patient [...] N ot Trigger Allergy Alert 01/20/2019 Medications atorvastatin (LIPITOR) 40 mg tablet Take 1 [...] MOUTH ONCE DAILY 90 Capsule 4 Active amLODIPine-valsa rtan-hcthiazid 5-160-25 mg tab Take 1 Tablet by mouth once daily 90 Tablet 5 Active Active Problems Problem Noted Date Diagnosed [...] Gastritis without bleeding 01/21/2019 0 01/27/2024 Immunizations Immunization Administration Dates Next Due Flu, Preservative Free [...] 74 01/27/2024 2:28 PM EDT Temperature 36.7 C (98 F) 01/27/2024 2:28 PM EDT Respiratory Rate 18 01/27/2024 2:28 PM EDT Oxygen Saturation 97% 06/19/2023 10:34 AM EDT Inhaled Oxygen Concentration - - Weight 94.3 kg (208 lb) 01/27/2024 2:28 PM EDT Height 162.6 cm (5' 4 ) 01/27/2024 2:28 PM EDT Body Mass Index 35.7 01/27/2024 2:28 PM EDT Plan of Treatment Health Maintenance Due Date Last Done Comments Anxiety Screening 1966 Dental FMX/Pano 1966 Dental Perio Charting 1966 HPV Screening (self-collect) 1966 HPV Screening 1966 Pap + HPV [address] Colonography 2011 FIT/gFOBT 2011 Fecal DNA 2011 Flexible Sigmoidoscopy 2011 Imm-Pneumococcal 50+ (1 of 1 - PCV) 2016 Annual Wellness (Adult): Indicated (All Coverage) 06/19/2024 06/19/2023, 01/20/2019 Lipid Screening 06/23/2024 06/23/2023, 01/20/2019 Breast Cancer Screening (Mammogram) 06/28/2024 06/28/2023, 02/16/2019, 02/16/2019 (Managed by Outside Provider) Alcohol and Drug Screen 09/08/2024 01/27/20 24, 09/23/2023, 06/19/2023, Additional history exists Depression Annual Screen 09/08/2024 01/27/2024 Dental BW 11/08/2024 11/07/2023 Dental Examination 11/08/2024 11/07/2023 Dental Prophy 11/08/2024 11/07/2023 [id number] ( season) 2025 Imm-Influenza (#1) 2025 06/19/2023 Diabetes Screening 06/23/2026 06/23/2023, 1 , 01/20/2019, Additional history exists Colonoscopy 03/22/2029 03/22/2019 Colorectal Cancer Screening 03/22/2029 Imm-DTaP/Tdap/Td (2 - Td or Tdap) 06/19/2033 023 HIV Screening Completed 06/23/2023, 01/20/2019 Hepatitis C Screening Completed 06/23/2023 Imm-Zoster, Recombinant Completed 01/27/2024, 06/19 Cervical Ablation/Cold-Knife Conization Discontinued Cervical Cancer Screening Discontinued Cervical Cryotherapy Discontinued Colposcopy Discontinued Excision/Leep Discontinued HPV Genotyping Discontinued Imm-Hepatitis B Discontinued Pap Smear Discontinued Vaginal Pap Discontinued Vulvoscopy Discontinued Procedures Procedure Name Priority Date/Time Associated Diagnosis Comments BITEWINGS - FOUR RADIOGRAPHIC IMAGES Routine 11/07/2023 4:20 PM EST Defective dental sabianism Full PROPHYLAXIS - ADULT Routine 11/07/2023 4:20 PM EST Defective dental sabianism Full PERIODIC ORAL EVALUATION ESTABLISHED PATIENT Routine 11/07/2023 4:20 PM EST Defective dental sabianism REFERRAL FOR MAMMOGRAM Routine 3:00 AM EDT [...] Health Maintenance Results * REFERRAL FOR MAMMOGRAM SCREENING (06/28/2023 3:00 AM EDT) 06/28/2023 3:00 AM EDT Luis Armando Mirna DENTAL HYGIENIST MOBILE COORDINATOR IMG RFL MAMMO Edited Re sult - Final * HEPATITIS C AB W/RFLX HCV RNA, QT, RT PCR (06/23/2023 10:29 AM EDT) HEPATITIS C ANTIBODY NON-REACT ZELALEM NON-REACT ZELALEM [facility] Comment: HCV antibody was non-reactive. There is no laboratory evidence of HCV infection. In most cases, no further action is required. However, if recent HCV exposure is suspected, a test for HCV RNA (test code 62363) is suggested. For additional information please refer to http://education.Black coin/faq/XXR94z4 (This link is being provided for informational/ educational purposes only.) Blood Blood / Unknown 06/23/2023 1 0:29 AM EDT 06/23/2023 10:30 AM EDT Narrative [facility] - 06/26/2023 12:56 PM EDT FASTING:YES Luis Armando SanchezMirna DENTAL HYGIENIST MOBILE COORDINATOR LAB - BLOOD DRAW Edited R esult - Final [facility] [address] [place] [id number], [facility] [address] [address] * HIV 1/2 AG & AB W/RFLX (4TH GEN) (06/23/2023 10:29 AM EDT) HIV AG/AB, 4TH GEN NON-REAC TIVE NON-REAC TIVE [facility] Comment: HIV-1 antigen and HIV-1/HIV-2 antibodies were not detected. There is no laboratory evidence of HIV infection. PLEASE NOTE: This information has been disclosed to you from records whose confidentiality may be protected by state law. If your state requires such protection, then the state law prohibits you from making any further disclosure of the information without the specific written consent of the person to whom it pertains, or as otherwise permitted by law. A general authorization for the release of medical or other information is NOT sufficient for this purpose. For additional information please refer to http://education.[employer].Nexeon/faq/GRM312 (This link is being provided for informational/ educational purposes only.) The performance of this assay has not been clinically validated in patients less than 2 years old. Blood Blood / Unknown 06/23/2023 1 0:29 AM EDT 06/23/2023 10:30 AM EDT Narrative [facility] - 06/26/2023 12:56 PM EDT FASTING:YES Luis Armando Mirna DENTAL HYGIENIST MOBILE COORDINATOR LAB - BLOOD DRAW Final Re sult [facility] [address] [address], [facility] [address] [address] * (ABNORMAL) LIPID PANEL (06/23/2023 10:29 AM EDT) CHOLESTEROL, TOTAL 339(H) <200 mg/dL [facility] HDL CHOLESTEROL 58 > OR = 50 mg/dL [facility] TRIGLYCERIDES 131 <150 mg/dL [facility] LDL-CHOLESTEROL 253(H) 99 mg/dL (calc) [facility] Comment: LDL-C levels > or = 190 [...] about testing for familial hypercholesterolemia, please call [facility] Client Services at [phone]. Judith Merino, et al. J National Lipid Association Recommendations for Patient-Centered Management of Dyslipidemia: Part 1 Journal of Clinical Lipidology 2015;9(2), 129-169. Jason Rock et al. (2014). Homozygous familial hypercholesterolaemia: new insights and guidance for clinicians to improve detection and clinical management. Heart Journal, 35(32), 6859-6721. Reference range: <100 Desirable range <100 mg/dL for primary prevention; <70 mg/dL for patients with CHD or diabetic patients with > or = 2 CHD risk factors. LDL-C is now calculated using the Jeovany calculation, which is a validated novel method providing better accuracy than the Friedewald equation in the estimation of LDL-C. Hammad SS et al. NOHEMI. 2013;310(19): 0453-7607 (http://education.Poppin/faq/WAK302) CHOL/HDLC RATIO 5.8(H) <5.0 (calc) [facility] NON-HDL CHOLESTEROL 281(H) <130 mg/dL (calc) [facility] Comment: Non-HDL level > or = 220 [...] AM EDT 06/23/2023 10:30 AM EDT Narrative [facility] - 06/26/2023 12:56 PM EDT FASTING:YES Luis Armando Bradley DENTAL HYGIENIST MOBILE COORDINATOR LAB - BLOOD DRAW Final Re sult [facility] [address] [address], [facility] [address] [place] [address] * COMPRE METAB PANEL (06/23/2023 10:29 AM EDT) GLUCOSE 95 65 - 99 mg/dL [facility] Comment: Fasting reference interval UREA NITROGEN (BUN) 8 7 - 25 mg/dL [facility] CREATININE (blood) 0.69 0.50 - 1.03 mg/dL [facility] EGFR 101 > OR = 60 mL/min/1. 73m2 [facility] BUN/CREATININE RATIO SEE NOTE: 6 - [facility] Comment: Not Reported: BUN and Creatinine are within reference range. SODIUM 139 135 - 146 mmol/L [facility] POTASSIUM 4.1 3.5 - 5.3 mmol/L [facility] CHLORIDE 101 98 - 110 mmol/L [facility] CARBON DIOXIDE 26 20 - 32 mmol/L [facility] CALCIUM 9.2 8.6 - 10.4 mg/dL [facility] PROTEIN, TOTAL 7.0 6.1 - 8.1 g/dL [facility] ALBUMIN 4.3 3.6 - 5.1 g/dL [facility] GLOBULIN 2.7 1.9 - 3.7 g/dL (calc) [facility] ALBUMIN/GLOBULI N RATIO 1.6 1.0 - 2.5 (calc) [facility] BILIRUBIN, TOTAL 0.5 0.2 - 1.2 mg/dL [facility] ALKALINE PHOSPHATASE 110 37 - 153 U/L [facility] AST 20 10 - 35 U/L [facility] ALT 18 6 - 29 U/L [facility] Blood Blood / Unknown 06/23/2023 1 0:29 AM EDT 06/23/2023 10:30 AM EDT Narrative [facility] - 06/26/2023 12:56 PM EDT FASTING:YES Luis Armando Bradley DENTAL HYGIENIST MOBILE COORDINATOR LAB - BLOOD DRAW Edited R esult - Final [facility] [address] [id number], [facility] [address] [address] * HISTORIC COLONOSCOPY (03/22/2019 3:00 AM EDT) 03/22/2019 3:00 AM EDT Luis Armando Bradley DENTAL HYGIENIST MOBILE COORDINATOR PROCEDURES Final Res ult from Last 3 Months or Most Recently Relevant to Health Maintenance Insurance [place] MEDICAID DENTAL [address] [employer] Care Teams Route Sales Specialist Relationship Specialty Start Date End Date Luis Armando Bradley FNP [address] [place] [address] PCP - General Family Medicine, MAGNETIC TESTER 05/15/23
--- OUTSIDE RECORDS SUMMARY | 2025-07-11 11:55 | XMS_ITS | Encounter Summary ---
Author Organization [employer] Address [address] [place] [address] Care Team Providers Care Package Dyeing Machine Operator Name Role Phone Unavailable Primary Care Provider Unavailabl e Encounter Details Date Type Department Care Team ([facility] st Contact Info) Description 07/11/2025 Telephone [facility] [address] [place] [address] Rahul Zaldivar MD [address] [facility] [place] [address] Social History Tobacco Use Types Packs/Day Years Used Date Smoking Tobacco: Never Assessed Comments Unknown Sex and Gender Information Value Date Recorded Sex Assigned at Female 05/21/2025 12:12 PM EDT Legal Sex Female 11:58 AM EDT Gender Identity Female 05/21/2025 12:12 PM EDT Sexual Orientation Straight 05/21/2025 12 :12 PM EDT documented as of this encounter Miscellaneous Notes * Telephone Encounter - Tonya Colunga RN - 07/11/2025 10:43 AM EST Patient was seen in [facility] as a new patient on 05/21/2025 for right breast pain. She got her diagnosticmammogram and US last week (results came in today). It was BI- RADS Category 4 Suspicious finding. Recommended to have a US-guided biopsy. The note from Radiology indicates the results were discussed with the patient. She is scheduled to meet with her new PCP in September 2025. Could you check with [facility] if there are any further referrals or orders needed from us? Thank you! TC placed to radiology department at [facility] spoke to Rocio who reports that the patient has been scheduled for biopsy wit Dr Roldan July 19, 2025 and no further actionis needed at this time by [facility]. Pt has a PREP MANAGER appointment with Dr Cruz and that information was provided to office so results are cc'd to PCP * Telephone Encounter - Rahul Zaldivar MD - 07/11/2025 9:37 AM EST Coordination with [facility] for US-guided biopsy documented in this encounter Plan of Treatment Upcoming Encounters Date Type Department Care Team (Late st Contact Info) Description 09/21/2025 2:15 PM EST Office Visit [facility] [address] [place] [address] Mirella Beckman MD [address] [place] [address] documented as of this encounter Visit Diagnoses Not on filedocumented in this encounter
--- OUTSIDE RECORDS SUMMARY | 2025-07-11 11:55 | XMS_ITS | Clinical Summary ---
Author Organization [facility] Address [address] [facility] 7t [place] [address] Care Team Providers Care Mutuel Clerk Name Role Phone Unavailable Primary Care Provider Unavailabl e Allergies No known active allergies Medications ibuprofen 600 MG tabletIndicatio ns:Breast pain, right Take 1 tablet (600 mg) by mouth every 8 (eight) hours if needed for moderate pain or fever. 30 tablet 06/20/20 25 Encounters Date Type Department Care Team Description 07/11/2025 Telephone [facility] [address] [place] [address] Rahul Zaldivar MD 06/13/2025 Telephone [facility] [address] [place] [address] Agustin Garcia MD telephone call 06/10/2025 Population Health Risk Score [facility] (C3) Department [address] [phone] Provider, Population Health Generic 05/21/2025 12:40 PM EDT Office Visit [facility] [address] [place] [address] Rahul Zaldivar MD Breast pain, right (Primary Dx) 05/21/2025 Telephone [facility] [address] [place] [address] [phone] Rahul Zaldivar MD 05/21/2025 Travel 05/05/2025 Telephone [facility]LL[facility] [address], [place] [phone] Allison Vences MD from Last 3 Months [...] Mass Index - - Plan of Treatment Upcoming Encounters Date Type Department Care Team (Late st Contact Info) Description 09/21/2025 2:15 PM EST Office Visit [facility] [address] [place] [address] Mirella Beckman MD [address] [place] [address] Health Maintenance Due Date Last Done Comments [...] 1987 Cervical Cancer Screening 1996 HPV/Cotest 1996 Pneumococcal Vaccine: 50+ Years (1 of 1 - PCV) 2016 COVID-19 Vaccine ( - 2023-2 5 season) 2025 Influenza Vaccine (#1) 2025 06/19/2023 Mammogram 07/07/2027 07/07/2025, 07/07/2025 DTaP/Tdap/Td Vaccines (2 - T d or [...] this topic Meningococcal Vaccine Aged Out No edyd beryl eligible based on patient's age to complete this topic RSV under 20 months Aged Out No longe r eligible based on patient's age to complete this topic Rotavirus Vaccines Aged Out No longer eligible based on patient's age to complete this topic Procedures Procedure Name Priority Date/Time Associated Diagnosis Comments BI US BREAST LIMITED RIGHT Routine 07/07/2025 2:34 PM EDT Breast pain, right BI MAMMOGRAM DIAGNOSTIC TOMOSYNTHESIS BILATERAL Routine 07/07/2025 1:54 PM EDT from Last 3 Months Results * BI US Breast Limited Right (07/07/2025 2:34 PM EDT) Anatomical Region Laterality Modality Breast Right Ultrasound 07/07/2025 2:34 PM EDT Narrative 07/08/2025 3:52 PM EDT [facility] [address] [place] [address] Ultrasound Report Signed Patient: Francheska Warner MR#: [id number] : 1965 Acct:[id number] Age/Sex: 60 / F ADM Date: 07/07/25 Loc: HO.MAMMO Attending Dr: Rahul Zaldivar MD Ordering Physician: Rahul Zaldivar MD Date of Service: 07/07/25 Procedure(s): US Breast RT Limited Mamm Only Accession Number(s): [id number] cc: Rahul Zaldivar MD Reason for Exam: RT BR PAIN; MASTODYNIA EXAMINATION: MM DIAGNOSTIC DIGITAL BREAST TOMOSYNTHESIS, BILATERAL Right limited ultrasound. CLINICAL INFORMATION: Right breast pain COMPARISON: Mammography: Comparison is made with relevant prior exams. TECHNIQUE: Digital breast mammography with tomosynthesis is performed in both the craniocaudal and mediolateral oblique views along with computer-aided detection (CAD). FINDINGS: The breasts are heterogeneously dense, which may obscure small masses. Left: There are no significant masses, abnormal calcifications, or other abnormalities. Right: Asymmetry questioned distortion central slightly upper breast localizing medially on MLO view 48/70. No suspicious calcifications or other abnormal findings. Targeted color Doppler ultrasound scanning in the lateral right breast and upper central upper inner right breast from 7-3 o'clock demonstrates an oval hypoechoic solid mass versus patch of normal fibroglandular breast tissue at 1:00 3 4 cm from the nipple measuring 10 x 6 x 11 mm. This is a questionable correlate for the asymmetry on mammography. Otherwise scanning from 7-3 o'clock demonstrates normal fibroglandular breast tissue. Results are provided to the patient at time of visit by the technologist. US/US Breast RT Limited Mamm Only IMPRESSION: Left: Negative. Right: 1. Asymmetry retroareolar region slightly superior breast localizing medially on MLO view. Question sonographic correlate of oval hypoechoic solid mass versus patch of tissue at 1:00 3 to 4 cm from the nipple. Recommend ultrasound-guided core needle biopsy at this time for confirmation. The findings and recommendations were discussed with the patient the procedure will be scheduled. If the postprocedural clip does not correlate with the asymmetry management will be pending biopsy clip placement and pathology. ASSESSMENT: BI-RADS Category 4: Suspicious RECOMMENDATION: Biopsy recommended This patient's information was entered into a reminder system with a target due date for their next mammogram. Electronically signed by: Yissel Ramos DO 07/08/2025 03:49 PM EDT Dictated By: Yissel Ramos DO Signed By: <Electronically signed by Yissel Ramos DO in OV> 07/08/25 1549 DD/ 1434 TD/TT: 07/07/25 1501 Mold Mover: Procedure Note Donotuseinterpreter, Image - 07/08/2025 [facility] [address] [place] [address] [place] [address] Ultrasound Report Signed Patient: Francheska Warner MR#: [id number] : 1965Acct:[id number] Age/Sex: 60 / FADM Date: 07/07/25 Loc: HO.MAMMO Attending Dr: Rahul Zaldivar MD Ordering Physician: Rahul Zaldivar MD Date of Service: 07/07/25 Procedure(s): US Breast RT Limited Mamm Only Accession Number(s): [id number] cc: Rahul Zaldivar MD Reason for Exam: RT BR PAIN; MASTODYNIA EXAMINATION: MM DIAGNOSTIC DIGITAL BREAST TOMOSYNTHESIS, BILATERAL Right limited ultrasound. CLINICAL INFORMATION: Right breast pain COMPARISON: Mammography: Comparison is made with relevant prior exams. TECHNIQUE: Digital breast mammography with tomosynthesis is performed in both the craniocaudal and mediolateral oblique views along with computer-aided detection (CAD). FINDINGS: The breasts are heterogeneously dense, which may obscure small masses. Left: There are no significant masses, abnormal calcifications, or other abnormalities. Right: Asymmetry questioned distortion central slightly upper breast localizing medially on MLO view 48/70. No suspicious calcifications or other abnormal findings. Targeted color Doppler ultrasound scanning in the lateral right breast and upper central upper inner right breast from 7-3 o'clock demonstrates an oval hypoechoic solid mass versus patch of normal fibroglandular breast tissue at 1:00 3 4 cm from the nipple measuring 10 x 6 x 11 mm. This is a questionable correlate for the asymmetry on mammography. Otherwise scanning from 7-3 o'clock demonstrates normal fibroglandular breast tissue. Results are provided to the patient at time of visit by the technologist. US/US Breast RT Limited Mamm Only IMPRESSION: Left: Negative. Right: 1. Asymmetry retroareolar region slightly superior breast localizing medially on MLO view. Question sonographic correlate of oval hypoechoic solid mass versus patch of tissue at 1:00 3 to 4 cm from the nipple. Recommend ultrasound-guided core needle biopsy at this time for confirmation. The findings and recommendations were discussed with the patient the procedure will be scheduled. If the postprocedural clip does not correlate with the asymmetry management will be pending biopsy clip placement and pathology. ASSESSMENT: BI-RADS Category 4: Suspicious RECOMMENDATION: Biopsy recommended This patient's information was entered into a reminder system with a target due date for their next mammogram. Electronically signed by: Yissel Ramos DO 07/08/2025 03:49 PM EDT Dictated By: Yissel Ramos DO Signed By: <Electronically signed by Yissel Ramos DO in OV> 07/08/25 1549 DD/ 1434 TD/TT: 07/07/25 1501 Mold Mover: us Rahul Zaldivar MD IMG US PROCEDURES Final Result * BI Mammogram Diagnostic Tomosynthesis Bilateral (07/07/2025 1:54 PM EDT) Anatomical Region Laterality Modality Breast Bilateral Mammography 07/07/2025 1:54 PM EDT Narrative 07/08/2025 3:52 PM EDT [facility] [address] [place] [address] Mammography Report Signed Patient: Francheska Warner MR#: [id number] : 1965 Acct:[id number] Age/Sex: 60 / F ADM Date: 07/07/25 Loc: .MAMMO Attending Dr: Rahul Zaldivar MD Ordering Physician: Rahul Zaldivar MD Results: 4Suspicious Date of Service: 07/07/25 Follow Up: Biopsy Recommend ed Procedure(s): MM tomosynthesis diagnostic BI Accession Number(s): [id number] cc: Rahul Zaldivar MD Reason For Exam: RT BR PAIN; MASTODYNIA EXAMINATION: MM DIAGNOSTIC DIGITAL BREAST TOMOSYNTHESIS, BILATERAL Right limited ultrasound. CLINICAL INFORMATION: Right breast pain COMPARISON: Mammography: Comparison is made with relevant prior exams. TECHNIQUE: Digital breast mammography with tomosynthesis is performed in both the craniocaudal and mediolateral oblique views along with computer-aided detection (CAD). FINDINGS: The breasts are heterogeneously dense, which may obscure small masses. Left: There are no significant masses, abnormal calcifications, or other abnormalities. Right: Asymmetry questioned distortion central slightly upper breast localizing medially on MLO view 48/70. No suspicious calcifications or other abnormal findings. Targeted color Doppler ultrasound scanning in the lateral right breast and upper central upper inner right breast from 7-3 o'clock demonstrates an oval hypoechoic solid mass versus patch of normal fibroglandular breast tissue at 1:00 3 4 cm from the nipple measuring 10 x 6 x 11 mm. This is a questionable correlate for the asymmetry on mammography. Otherwise scanning from 7-3 o'clock demonstrates normal fibroglandular breast tissue. Results are provided to the patient at time of visit by the technologist. MM/MM tomosynthesis diagnostic BI IMPRESSION: Left: Negative. Right: 1. Asymmetry retroareolar region slightly superior breast localizing medially on MLO view. Question sonographic correlate of oval hypoechoic solid mass versus patch of tissue at 1:00 3 to 4 cm from the nipple. Recommend ultrasound-guided core needle biopsy at this time for confirmation. The findings and recommendations were discussed with the patient the procedure will be scheduled. If the postprocedural clip does not correlate with the asymmetry management will be pending biopsy clip placement and pathology. ASSESSMENT: BI-RADS Category 4: Suspicious RECOMMENDATION: Biopsy recommended This patient's information was entered into a reminder system with a target due date for their next mammogram. Electronically signed by: Yissel Ramos DO 07/08/2025 03:49 PM EDT Dictated By: Yissel Ramos DO Signed By: <Electronically signed by Yissel Ramos DO in OV> 07/08/25 1549 DD/ 1354 TD/TT: 07/07/25 1404 Mold Mover: Procedure Note Donotuseinterpreter, Image - 07/08/2025 [facility] [address] [place] [address] [place] [address] Mammography Report Signed Patient: Francheska Warner MR#: [id number] : 1965Acct:[id number] Age/Sex: 60 / FADM Date: 07/07/25 Loc: HO.MAMMO Attending Dr: Rahul Zaldivar MD Ordering Physician: Rahul Zaldivar MDResults: 4Suspicious Date of Service: 07/07/25Follow Up: Biopsy Recommend ed Procedure(s): MM tomosynthesis diagnostic BI Accession Number(s): [id number] cc: Rahul Zaldivar MD Reason For Exam: RT BR PAIN; MASTODYNIA EXAMINATION: MM DIAGNOSTIC DIGITAL BREAST TOMOSYNTHESIS, BILATERAL Right limited ultrasound. CLINICAL INFORMATION: Right breast pain COMPARISON: Mammography: Comparison is made with relevant prior exams. TECHNIQUE: Digital breast mammography with tomosynthesis is performed in both the craniocaudal and mediolateral oblique views along with computer-aided detection (CAD). FINDINGS: The breasts are heterogeneously dense, which may obscure small masses. Left: There are no significant masses, abnormal calcifications, or other abnormalities. Right: Asymmetry questioned distortion central slightly upper breast localizing medially on MLO view 48/70. No suspicious calcifications or other abnormal findings. Targeted color Doppler ultrasound scanning in the lateral right breast and upper central upper inner right breast from 7-3 o'clock demonstrates an oval hypoechoic solid mass versus patch of normal fibroglandular breast tissue at 1:00 3 4 cm from the nipple measuring 10 x 6 x 11 mm. This is a questionable correlate for the asymmetry on mammography. Otherwise scanning from 7-3 o'clock demonstrates normal fibroglandular breast tissue. Results are provided to the patient at time of visit by the technologist. MM/MM tomosynthesis diagnostic BI IMPRESSION: Left: Negative. Right: 1. Asymmetry retroareolar region slightly superior breast localizing medially on MLO view. Question sonographic correlate of oval hypoechoic solid mass versus patch of tissue at 1:00 3 to 4 cm from the nipple. Recommend ultrasound-guided core needle biopsy at this time for confirmation. The findings and recommendations were discussed with the patient the procedure will be scheduled. If the postprocedural clip does not correlate with the asymmetry management will be pending biopsy clip placement and pathology. ASSESSMENT: BI-RADS Category 4: Suspicious RECOMMENDATION: Biopsy recommended This patient's information was entered into a reminder system with a target due date for their next mammogram. Electronically signed by: Yissel Ramos DO 07/08/2025 03:49 PM EDT Dictated By: Yissel Ramos DO Signed By: <Electronically signed by Yissel Ramos DO in OV> 07/08/25 1549 DD/ 1354 TD/TT: 07/07/25 1404 Mold Mover: Rahul Zaldivar MD IMG BI PROCEDURES Final Result from Last 3 Months Insurance [facility] C3
== END 2025-07-11 10:39 | disposition home or self-care (01) ==
LOC: HO.HGS 10:01
PROVIDERS: PCP Family Medicine; Visit Provider Surgery
DX: R92.8 Other abnormal and inconclusive findings on diagnostic imaging of breast (principal)
CPT/HCPCS: 99203

== ENCOUNTER → 2025-07-11 10:00 | Outpatient (BNVA) | payer MEDICAID, SELFPAY | PROVIDERS: PCP Family Medicine; Visit Provider Surgery | DX: R92.8 Other abnormal and inconclusive findings on diagnostic imaging of breast (principal) | CPT/HCPCS: 99202 ==

== ENCOUNTER 2025-07-19 07:44 | Outpatient (REF) | payer MEDICAID, SELFPAY ==
--- NOTE | ~2025-07-19 | US_ITS ---
EXAMINATION/PROCEDURE: 1. ULTRASOUND GUIDED CORE BIOPSY BREAST, RIGHT 2. POST PROCEDURE DIGITAL MAMMOGRAM WITH TOMOSYNTHESIS, RIGHT CLINICAL INFORMATION: Patient is status post diagnostic mammogram/ultrasound workup on July 07, 2025 that described a right breast asymmetry in the retroareolar plane on the MLO view, with probable correlating sonographic finding located at 1 o'clock position 3 to 4 cm from the nipple measuring 1.1 x 1.0 x 0.6 cm. An ultrasound-guided needle core biopsy was recommended. COMPARISON: Diagnostic mammogram/ultrasound on July 07, 2025. FINDINGS: Proper informed consent is obtained from the patient after discussion of the procedure, potential risks and complications, and alternatives, with the help of the certified precision dyer Ms. Rocio Elaine. Patient was given an opportunity for questions. The patient appeared to understand. The patient consented to the procedure and signed the consent form. GUIDANCE: Ultrasound-guided; aseptic technique. LESION: 1.0 x 0.8 x 0.9 cm solid mass at 1 o'clock position 3 cm from the nipple. APPROACH: Medial. ANESTHESIA: 8 cc of lidocaine 1% buffered with Sodium Bicarbonate 8.4% (9ml:1ml ratio). NEEDLE: 14-gauge Bard Marquee biopsy device with co-axial introducer. CORES: 3. CLIP: Ultraclip; shape: ribbon. The needle was then removed and adequate hemostasis was achieved. Estimated blood loss: Minimal POST PROCEDURE UNILATERAL DIGITAL MAMMOGRAM: The post biopsy mammogram is performed in separate room using separate digital mammography equipment from the biopsy procedure. Full field ML 90 degrees, MLO and CC views with tomosynthesis are obtained. The ribbon shape clip marker is in satisfactory position, correlating with the asymmetry previously described on the MLO view along the retroareolar plane. No gross hematoma. The patient tolerated the procedure well. No immediate complications. Home instructions reviewed with the patient with the help of a precision dyer. Final pathology results are pending. US/US breast ndl core biopsy RT IMPRESSION: 1. Status post ultrasound-guided core biopsy right breast 1.0 cm solid mass at 1 o'clock position 3 cm from the nipple. 2. Clip placed: Ultraclip; shape: ribbon. 3. Pathology pending. An addendum report will be issued. ASSESSMENT: BI-RADS: Post Procedure Mammograms for Marker Placement RECOMMENDATION: Awaiting Pathology Results Electronically signed by: Geo Loredo MD 07/19/2025 09:44 AM [facility]
--- OUTSIDE RECORDS SUMMARY | 2025-07-19 07:47 | XMS_ITS | Clinical Summary ---
Author Organization [employer] [facility] Address [address] [facility] 7t [place] [address] Care Team Providers Care P D Driver Name Role Phone Unavailable Primary Care Provider Unavailabl e Allergies No known active allergies Medications ibuprofen 600 MG tabletIndicatio ns:Breast pain, right Take 1 tablet (600 mg) by mouth every 8 (eight) hours if needed for moderate pain or fever. 30 tablet 06/20/20 25 Encounters Date Type Department Care Team Description 07/13/2025 Telephone [facility] [address] [place] [phone] Rahul Zaldivar MD 07/11/2025 Telephone [facility] [address] [place], [place] [phone] Rahul Zaldivar MD 06/13/2025 Telephone [facility] [address] [place] [phone] Agustin Garcia MD telephone call 06/10/2025 Population Health Risk Score [facility] (C3) Department 75 [facility] [address] [place] [phone] Provider, Population Health Generic 05/21/2025 12:40 PM EDT Office Visit [facility] [address] [place] [phone] Rahul Zaldivar MD Breast pain, right (Primary Dx) 05/21/2025 Telephone [facility] [address] [place] [phone] Rahul Zaldivar MD 05/21/2025 Travel 05/05/2025 Telephone [facility]LL[facility] [address] [place] [address] Allison Vences MD from Last 3 Months [...] Description 09/21/2025 2:15 PM EST Office Visit [facility] [address] [place] [address] Mirella Beckman MD [address] [place] [address] Health Maintenance Due Date Last Done Comments [...] of 1 - PCV) 2016 COVID-19 Vaccine (1 - 4-2 5 season) 2025 Influenza Vaccine (#1) 2025 06/19/2023 Diagnostic Breast Imaging 08/07/20252024, 07/07/2025 DTaP/Tdap/Td Vaccines (2 - T d [...] PM EDT Narrative 07/08/2025 3:52 PM EDT [facility] [address] [place] [place] [address] Ultrasound Report Signed Patient: Francheska Warner MR#: [id number] : 1965 Acct:[id number] Age/Sex: 60 / F ADM Date: 07/07/25 Loc: HO.MAMMO Attending Dr: Rahul Zaldivar MD Ordering Physician: Rahul Zaldivar MD Date of Service: 07/07/25 Procedure(s): US Breast RT Limited Mamm Only Accession Number(s): [id number] cc: Rahul Zaldivar MD Reason for Exam: [...] Yissel Ramos DO 07/08/2025 03:49 PM EDT RP Dictated By: Yissel Ramos DO Signed By: <Electronically signed by Yissel Ramos DO in OV> 07/08/25 1549 DD/ 1434 TD/TT: 07/07/25 1501 Medical Corps Officer: Procedure Note Donotuseinterpreter, Image - 07/08/20[facility] [address] [place] [place] [address] Ultrasound Report Signed Patient: Francheska Warner MR#: [id number] : 1965Acct:[id number] Age/Sex: 60 / FADM Date: 07/07/25 Loc: HO.MAMMO Attending Dr: Rahul Zaldivar MD Ordering Physician: Rahul Zaldivar MD Date of Service: 07/07/25 Procedure(s): US Breast RT Limited Mamm Only Accession Number(s): [id number] cc: Rahul Zaldivar MD Reason for Exam: [...] Yissel Ramos DO 07/08/2025 03:49 PM EDT RP Dictated By: Yissel Ramos DO Signed By: <Electronically signed by Yissel Ramos DO in OV> 07/08/25 1549 DD/ 1434 TD/TT: 07/07/25 1501 [employer] Officer: us Rahul Zaldivar MD IMG US PROCEDURES Final Result * BI Mammogram Diagnostic Tomosynthesis Bilateral (07/07/2025 1:54 PM EDT) Anatomical Region Laterality Modality Breast Bilateral Mammography 07/07/2025 1:54 PM EDT Narrative 07/08/2025 3:52 PM EDT [facility] [address] [place] [place] [address] Mammography Report Signed Patient: Francheska Warner MR#: [id number] : 1965 Acct:[id number] Age/Sex: 60 / F ADM Date: 07/07/25 Loc: HO.MAMMO Attending Dr: Rahul Zaldivar MD Ordering Physician: Rahul Zaldivar MD Results: 4Suspicious Date of Service: 07/07/25 Follow Up: Biopsy Recommend ed Procedure(s): MM tomosynthesis diagnostic BI Accession Number(s): [id number] cc: Rahul Zaldivar MD Reason For Exam: [...] 07/08/25 1549 DD/ 1354 TD/TT: 07/07/25 1404 [employer] Officer: Procedure Note Donotuseinterpreter, Image - 07/08/2025 [facility] [address] [place] [place] [address] Mammography Report Signed Patient: Francheska Warner MR#: [id number] : 1965Acct:[id number] Age/Sex: 60 / FADM Date: 07/07/25 Loc: HO.MAMMO Attending Dr: Rahul Zaldivar MD Ordering Physician: Rahul Zaldivar MDResults: 4Suspicious Date of Service: 07/07/25Follow Up: Biopsy Recommend ed Procedure(s): MM tomosynthesis diagnostic BI Accession Number(s): [id number] cc: Rahul Zaldivar MD Reason For Exam: [...] 07/08/25 1549 DD/ 1354 TD/TT: 07/07/25 1404 [employer] Officer: Rahul Zaldviar MD IMG BI PROCEDURES Final Result from Last 3 Months Insurance [id number] [address] [facility] C3
--- OUTSIDE RECORDS SUMMARY | 2025-07-19 07:47 | XMS_ITS | Encounter Summary ---
Author Organization [employer] Address [address] [facility] [address] 7[address] [place] [address] Care Team Providers Care Pulp Screen Operator Name Role Phone Unavailable Primary Care Provider Unavailabl e Encounter Details Date Type Department Care Team (Late st Contact Info) Description 07/13/2025 Telephone [facility] [address] [place] [phone] Rahul Zaldivar MD [address] [place] [phone] Social History Tobacco Use Types Packs/Day Years Used Date Smoking Tobacco: Never Assessed Comments Unknown Sex and Gender Information Value Date Recorded Sex Assigned at Female 05/21/2025 12:12 PM EDT Legal Sex Female 11:58 AM EDT Gender Identity Female 05/21/2025 12:12 PM EDT Sexual Orientation Straight 05/21/2025 12 :12 PM EDT documented as of this encounter Miscellaneous Notes * Telephone Encounter - Rahul Zaldivar MD - 07/13/2025 5:52 PM EST Communication with Women's Health Tracking documented in this encounter Plan of Treatment Upcoming Encounters Date Type Department Care Team (Late st Contact Info) Description 09/21/2025 2:15 PM EST Office Visit [facility] [address] [place] [phone] Mirella Beckman MD [address] [place], [place] [phone] documented as of this encounter Visit Diagnoses Not on filedocumented in this encounter
--- OUTSIDE RECORDS SUMMARY | 2025-07-19 07:47 | XMS_ITS | Clinical Summary ---
Author Organization [facility] Address [address] [place] [address] Care Team Providers Care Glazier Apprentice Name Role Phone Luis Armando Bradley QUINTON Primary Care Provider [phone] Source Comments PLEASE NOTE, if this patient [...] Examination 11/08/2024 11/07/2023 Dental Prophy 11/08/2024 11/07/2023 [id number] ( season) 2025 Imm-Influenza (#1) 2025 06/19/2023 [...] Routine 11/07/2023 4:20 PM EST Defective dental yarsani Full PROPHYLAXIS - ADULT Routine 11/07/2023 4:20 PM EST Defective dental yarsani Full PERIODIC ORAL EVALUATION ESTABLISHED PATIENT Routine 11/07/2023 4:20 PM EST Defective dental yarsani REFERRAL FOR MAMMOGRAM Routine 3:00 AM EDT [...] EDT) 06/28/2023 3:00 AM EDT Luis Armando Minra CHEF HEAD IMG RFL MAMMO Edited Re sult - Final * HEPATITIS C AB W/RFLX HCV RNA, QT, RT PCR (06/23/2023 10:29 AM EDT) HEPATITIS C ANTIBODY NON-REACT ZELALEM NON-REACT ZELALEM [facility] Comment: HCV antibody was non-reactive. There is no laboratory evidence of HCV infection. In most cases, no further action is required. However, if recent HCV exposure is suspected, a test for HCV RNA (test code 05145) is suggested. For additional information please refer to http://education.Finalta/faq/RFB00m3 (This link is being provided for informational/ educational purposes only.) Blood Blood / Unknown 06/23/2023 1 0:29 AM EDT 06/23/2023 10:30 AM EDT Narrative [facility] - 06/26/2023 12:56 PM EDT FASTING:YES Luis Armando SanchezMirna CHEF HEAD LAB - BLOOD DRAW Edited R esult - Final [facility] [address] [place] [id number], [facility] [address] [address] * HIV 1/2 AG & AB W/RFLX (4TH GEN) (06/23/2023 10:29 AM EDT) HIV AG/AB, 4TH GEN NON-REAC TIVE NON-REAC TIVE [facility] Comment: HIV-1 antigen and HIV-1/HIV-2 antibodies were [...] purpose. For additional information please refer to http://education.[employer].Cloud Cruiser/faq/GTR320 (This link is being provided for informational/ educational purposes only.) The performance of this assay has not been clinically validated in patients less than 2 years old. Blood Blood / Unknown 06/23/2023 1 0:29 AM EDT 06/23/2023 10:30 AM EDT Narrative [facility] - 06/26/2023 12:56 PM EDT FASTING:YES Luis Armando Mirna CHEF HEAD LAB - BLOOD DRAW Final Re sult [facility] [address] [address], [facility] [address] [address] * (ABNORMAL) LIPID PANEL (06/23/2023 10:29 AM EDT) CHOLESTEROL, TOTAL 339(H) <200 mg/dL [facility] HDL CHOLESTEROL 58 > OR = 50 mg/dL [facility] TRIGLYCERIDES 131 <150 mg/dL [facility] LDL-CHOLESTEROL 253(H) 99 mg/dL (calc) [facility] Comment: LDL-C levels > or = 190 [...] about testing for familial hypercholesterolemia, please call [employer] [facility] at [phone]. Judith Merino, et al. J National Lipid Association Recommendations for Patient-Centered Management of Dyslipidemia: Part 1 Journal of Clinical Lipidology 2015;9(2), 129-169. Jason Rock et al. (2014). Homozygous familial hypercholesterolaemia: new insights and guidance for clinicians to improve detection and clinical management. Heart Journal, 35(32), 5310-0756. Reference range: <100 Desirable range <100 mg/dL for primary prevention; <70 mg/dL for patients with CHD or diabetic patients with > or = 2 CHD risk factors. LDL-C is now calculated using the Jeovany calculation, which is a validated novel method providing better accuracy than the Friedewald equation in the estimation of LDL-C. Hammad SS et al. NOHEMI. 2013;310(19): 9798-4451 (http://education.[employer] Power/faq/DDJ203) CHOL/HDLC RATIO 5.8(H) <5.0 (calc) [facility] NON-HDL CHOLESTEROL 281(H) <130 mg/dL (calc) [facility] Comment: Non-HDL level > or = 220 [...] AM EDT 06/23/2023 10:30 AM EDT Narrative [facility] - 06/26/2023 12:56 PM EDT FASTING:YES Luis Armando Bradley CHEF HEAD LAB - BLOOD DRAW Final Re sult [facility] [address] [address], [facility] [address] [place] [address] * COMPRE METAB PANEL (06/23/2023 10:29 AM EDT) GLUCOSE 95 65 - 99 mg/dL [facility] Comment: Fasting reference interval UREA NITROGEN (BUN) 8 7 - 25 mg/dL [facility] CREATININE (blood) 0.69 0.50 - 1.03 mg/dL [facility] EGFR 101 > OR = 60 mL/min/1. 73m2 [facility] BUN/CREATININE RATIO SEE NOTE: 6 - [facility] Comment: Not Reported: BUN and Creatinine are within reference range. SODIUM 139 135 - 146 mmol/L [facility] POTASSIUM 4.1 3.5 - 5.3 mmol/L [facility] CHLORIDE 101 98 - 110 mmol/L [facility] CARBON DIOXIDE 26 20 - 32 mmol/L [facility] CALCIUM 9.2 8.6 - 10.4 mg/dL [facility] PROTEIN, TOTAL 7.0 6.1 - 8.1 g/dL [facility] ALBUMIN 4.3 3.6 - 5.1 g/dL [facility] GLOBULIN 2.7 1.9 - 3.7 g/dL (calc) [facility] ALBUMIN/GLOBULI N RATIO 1.6 1.0 - 2.5 (calc) [facility] BILIRUBIN, TOTAL 0.5 0.2 - 1.2 mg/dL [facility] ALKALINE PHOSPHATASE 110 37 - 153 U/L [facility] AST 20 10 - 35 U/L [facility] ALT 18 6 - 29 U/L [facility] Blood Blood / Unknown 06/23/2023 1 0:29 AM EDT 06/23/2023 10:30 AM EDT Narrative [facility] - 06/26/2023 12:56 PM EDT FASTING:YES Luis Armando Bradley CHEF HEAD LAB - BLOOD DRAW Edited R esult - Final [facility] [address] [address], [facility] [address] [address] * HISTORIC COLONOSCOPY (03/22/2019 3:00 AM EDT) 03/22/2019 3:00 AM EDT Luis Armando Bradley CHEF HEAD PROCEDURES Final Res ult from Last 3 Months or Most Recently Relevant to Health Maintenance Insurance [place] [employer] [address] [employer] Care Teams Glazier Apprentice Relationship Specialty Start Date End Date Luis Armando Bradley FNP [address] [place] [address] PCP - General Family Medicine, RESOURCE ROOM TEACHER 05/15/23
[2025-07-19] MEDS: Lidocaine HCl 1 % 20 ML VIAL 9 ML SUBCUT (09:21)
== END 2025-07-19 07:45 | disposition home or self-care (01) ==
LOC: HO.MAMMO 07:44
PROVIDERS: Visit Provider Surgery
DX: R92.8 Other abnormal and inconclusive findings on diagnostic imaging of breast (principal); Z12.31 Encounter for screening mammogram for malignant neoplasm of breast
CPT/HCPCS: 19083; 77061; 77065; 88305; A4648; J2003

== ENCOUNTER → 2025-07-19 08:00 | Outpatient (BNV) | payer MEDICAID, SELFPAY | PROVIDERS: Visit Provider Radiology Body Imaging | DX: R92.8 Other abnormal and inconclusive findings on diagnostic imaging of breast (principal) | CPT/HCPCS: 19083 ==

== ENCOUNTER 2025-07-28 13:32 | Outpatient (AMB) | payer MEDICAID, SELFPAY ==
--- NOTE | 2025-07-28 13:34 | MHC.OFFVIS ---
Vital Signs 07/28/25 13:37 Height 5 ft 4 in Weight 222 lb 6.014 oz BMI 38.2 Intake Visit Reasons: s/p US Bx RT breast 1:00 oclock denisty Intake Note: Patient presents for a follow-up for breast biopsy results. (07/19/2024) Pt c/o; no complaints at this time. Senior Cytogenetic Technologist Required: Yes Senior Cytogenetic Technologist Language: Puller Through Services: Senior Cytogenetic Technologist Present Senior Cytogenetic Technologist Name: Alejandro Information Interpreted: non-clinical & clinical Accompanied by: Family/Other Allergies aspirin Adverse Reaction (Severe, Verified 07/28/25 13:38) Abdominal Pain Medication List - Last Reconciled 07/28/25 by Yadiel Roldan MD atorvastatin (Lipitor) 40 mg PO DAILY cholecalciferol (vitamin D3) 25 mcg PO DAILY cyclobenzaprine 10 mg PO TID PRN lidocaine 5% 1 patch topical DAILY omeprazole 20 mg PO DAILY HPI HPI s/p US Bx RT breast 1:00 oclock denisty: Details: She had undergone ultrasound biopsy of a right breast mass last 07/11/2025. She tolerated procedure well and denies any hematoma. She is here to discuss the path report. [facility] Medical History Morbid obesity Abnormal mammogram of right breast Hyperlipidemia GERD (gastroesophageal reflux disease) HTN (hypertension) Surgical History Hx of hysterectomy, total Family History Maternal Aunt Breast cancer Maternal Grandmother Stomach cancer Social History Patient Tobacco Use Status: Never used Tobacco Female Reproductive History Menstrual Age of Menarche: 16 Review of Systems Const Denies chills and Denies fever(s) Card Denies chest pain at rest Resp Denies cough Physical Exam Vital Signs: BMI result Body Mass Index 38.2 Const General: comfortable and no acute distress Nutritional Appearance: obese Chest Other: No hematoma or ecchymosis in the biopsy site Resp Effort & Inspection: normal respiratory effort Assessment & Plan Assessment & Plan (1) Abnormal mammogram of right breast: Code(s): R92.8 - Other abnormal and inconclusive findings on diagnostic imaging of breast Category: Medical Plan: She had undergone an ultrasound-guided biopsy of this right breast mass unfortunately the path report shows a fibroadenoma. I explained to her the benign nature of this finding. She is recommended to continue to undergo regular screening mammograms. She can otherwise follow up with me on a p.r.n. basis. Coding Level of Care Code Est Pt Level 2 (43214) Diagnoses Abnormal mammogram of right breast R92.8
[2025-07-28 13:37] VITALS: BMI 38.2
--- OUTSIDE RECORDS SUMMARY | 2025-07-28 19:00 | XMS_ITS | Clinical Summary ---
Author Organization [facility] Address [address] [place] [address] Care Team Providers Care Accounts Payable Clerk Name Role Phone Unavailable Primary Care Provider Unavailabl e Allergies No known active allergies Encounters Date Type Department Care Team Description 07/13/2025 Telephone [facility] WALK-IN CENTER [address] [place] [phone] Rahul Zaldivar MD 07/11/2025 Telephone [facility] CHC MED & PEDS [address] [place] [address] Rahul Zaldivar MD 06/13/2025 Telephone [facility] MEDICINE [address] [place] [phone] Agustin Garcia MD telephone call 06/10/2025 Population Health Risk Score [facility] (C[facility]) Department [address] [place] [id number] Provider, Population Health Generic 05/21/2025 12:40 PM EDT Office Visit [facility] W[facility] [address] [place] [phone] Rahul Zaldivar MD Breast pain, right (Primary Dx) 05/21/2025 Telephone [facility] WALK[facility]IN [facility]ENTER [address] [place] [phone] Rahul Zaldivar MD 05/21/2025 Travel 05/05/2025 Telephone [facility] INS ENROLLMENT [address] [place] [address] [phone] Allison Vences MD from Last 3 Months [...] 2:15 PM EST Office Visit [facility] MEDICINE [address] [place] [address] Mirella Beckman MD [address] [place] [address] Health Maintenance Due Date Last Done Comments [...] - PCV) 2016 COVID-19 Vaccine ( - 2024-2 6 season) 2025 Influenza Vaccine (#1) 2025 06/19/2023 [...] PM EDT Narrative 07/08/2025 3:52 PM EDT [facility] [address] [place] [address] Ultrasound Report Signed Patient: Francheska Warner MR#: [id number] : 1965 Acct:[id number] Age/Sex: 60 / F ADM Date: 07/07/25 Loc: HO.MAMMO Attending Dr: Rahul Zaldivar MD Ordering Physician: Rahul Zaldivar MD Date of Service: 07/07/25 Procedure(s): US Breast RT Limited Mamm Only Accession Number(s): [id number] cc: Rahul Zaldivar MD Reason for Exam: [...] 07/08/25 1549 DD/ 1434 TD/TT: 07/07/25 1501 Marine Equipment Test Engineer: Procedure Note Donotuseinterpreter, Image - 07/08/2025 [place] [facility] [address] [place] [address] Ultrasound Report Signed Patient: Francheska Warner MR#: [id number] : 1965Acct:[id number] Age/Sex: 60 / FADM Date: 07/07/25 Loc: HO.MAMMO Attending Dr: Rahul Zaldivar MD Ordering Physician: Rahul Zaldivar MD Date of Service: 07/07/25 Procedure(s): US Breast RT Limited Mamm Only Accession Number(s): [id number] cc: Rahul Zaldivar MD Reason for Exam: [...] 07/08/25 1549 DD/ 1434 TD/TT: 07/07/25 1501 Marine Equipment Test Engineer: us Rahul Zaldivar MD IMG US PROCEDURES Final Result * BI Mammogram Diagnostic Tomosynthesis Bilateral (07/07/2025 1:54 PM EDT) Anatomical Region Laterality Modality Breast Bilateral Mammography 07/07/2025 1:54 PM EDT Narrative 07/08/2025 3:52 PM EDT [facility] [address] [place] [address] Mammography Report Signed Patient: Francheska Warner MR#: [id number] : 1965 Acct:[id number] Age/Sex: 60 / F ADM Date: 07/07/25 Loc: .MAMMO Attending Dr: Rahul Zaldivar MD Ordering Physician: Rahul Zaldivar MD Results: 4Suspicious Date of Service: 07/07/25 Follow Up: Biopsy Recommend ed Procedure(s): MM tomosynthesis diagnostic BI Accession Number(s): [id number] cc: Rahul Zaldivar MD Reason For Exam: [...] 07/08/25 1549 DD/ 1354 TD/TT: 07/07/25 1404 Marine Equipment Test Engineer: Procedure Note Donotuseinterpreter, Image - 07/08/2025 [facility] [address] [place] [address] Mammography Report Signed Patient: Francheska Warner MR#: [id number] : 1965Acct:[id number] Age/Sex: 60 / FADM Date: 07/07/25 Loc: HO.MAMMO Attending Dr: Rahul Zaldivar MD Ordering Physician: Rahul Zaldivar MDResults: 4Suspicious Date of Service: 07/07/25Follow Up: Biopsy Recommend ed Procedure(s): MM tomosynthesis diagnostic BI Accession Number(s): [id number] cc: Rahul Zaldivar MD Reason For Exam: [...] OV> 07/08/25 1549 DD/ 1354 TD/TT: 07/07/25 1406 Marine Equipment Test Engineer: Rahul Zaldivar MD IMG BI PROCEDURES Final Result from Last 3 Months Insurance [facility] C3
== END 2025-07-28 13:42 | disposition home or self-care (01) ==
LOC: HO.HGS 13:33
PROVIDERS: PCP Family Medicine; Visit Provider Surgery
DX: R92.8 Other abnormal and inconclusive findings on diagnostic imaging of breast (principal)
CPT/HCPCS: 99212

== ENCOUNTER → 2025-07-28 13:32 | Outpatient (BNVA) | payer MEDICAID, SELFPAY | PROVIDERS: PCP Family Medicine; Visit Provider Surgery | DX: Z71.2 Person consulting for explanation of examination or test findings (principal); D24.1 Benign neoplasm of right breast; R92.8 Other abnormal and inconclusive findings on diagnostic imaging of breast | CPT/HCPCS: 99212 ==